=== PATIENT | male | born 1970 | race Caucasian/White ===

== ENCOUNTER 2020-12-08 08:12 | Outpatient (CLI) | payer OTHER, SELFPAY | END 2020-12-08 08:13 | disposition home or self-care (01) | LOC: WOUND 08:15 | PROVIDERS: Family Provider Nurse Practitioner; PCP Nurse Practitioner; Visit Provider Thoracic Surgery (Cardiothoracic Vascular Surgery) | DX: L98.492 Non-pressure chronic ulcer of skin of other sites with fat layer exposed (principal) | CPT/HCPCS: 99203 ==

== ENCOUNTER 2020-12-15 08:57 | Outpatient (CLI) | payer OTHER, SELFPAY | END 2020-12-15 08:58 | disposition home or self-care (01) | LOC: WOUND 08:58 | PROVIDERS: Family Provider Nurse Practitioner; PCP Nurse Practitioner; Visit Provider Thoracic Surgery (Cardiothoracic Vascular Surgery) | DX: L98.492 Non-pressure chronic ulcer of skin of other sites with fat layer exposed (principal) | CPT/HCPCS: 11042 ==

== ENCOUNTER 2020-12-29 08:20 | Outpatient (CLI) | payer OTHER, SELFPAY | END 2020-12-29 08:21 | disposition home or self-care (01) | LOC: WOUND 08:20 | PROVIDERS: Family Provider Nurse Practitioner; PCP Nurse Practitioner; Visit Provider Thoracic Surgery (Cardiothoracic Vascular Surgery) | DX: Z09 Encounter for follow-up examination after completed treatment for conditions other than malignant neoplasm (principal) | CPT/HCPCS: 99212 ==